=== PATIENT | female | born 1990 | race Hispanic/Latino ===

== ENCOUNTER 2018-12-08 19:50 | Observation (INO) | payer BC ==
[2018-12-08] MEDS ORDERED: Sodium Chloride 0.9% 1,000 ML IV SCH (20:45)
--- NOTE | 2018-12-08 20:48 | ED PDOC ---
HPI:STROKE - Time Time: 20:00 - Historian Historian: Patient - Chief Complaint Chief Complaint: Weakness, Slurred speech, Confusion, Arm weakness (RIGHT hand) - Onset Date: 12/08/18 Time: 14:30 - Timing Timing: Improved - Notes: Notes:: 28yo healthy women 27 weeks reporting sudden onset dysarthria, confusion, and RIGHT hand apraxia and tingling at 2:30pm, lasted for ~20 minutes and then resolved spontaneously but then had headache. Headache has also resolved. She denies chest pain or dyspnea. 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 Cobb NIHSS Stroke Scale - Date/Time Evaluation Performed Date Performed: 12/08/18 Time Performed: 20:00 When Was NIHSS Performed: Baseline - How Severe is the Stroke Level of Consciousness: 0=Alert LOC to Questions: 0=Both comments correct LOC to commands: 0=Obeys both correctly Best Gaze: 0=Normal Visual: 0=No visual loss Facial: 0=Normal Motor Arm - Left: 0=No drift Motor Arm - Right: 0=No drift Motor Leg - Left: 0=No drift Motor Leg - Right: 0=No drift Limb Ataxia: 0=Absent Sensory: 0=Normal Best Language: 0=No aphasia Dysarthia: 0=Normal articulation Extinction & Inattention (Neglect): 0=Normal, no object Score: 0 rTPA Inclusion/Exclusion - Refusal of Treatment Patient Refused Treatment: No - Inclusion Criteria for Altepase Patient is 18 years or Older: Yes The Clinical Diagnosis of Ischemic Stroke That is Causing a Potentially Disabling Neurological Deficit: Yes Time of Onset is Well Established to be Less Than 270 Minute Before Treatment Would Begin: No Risk/Benefit Discussed With Patient/Family Member Present: No Past Medical History Reviewed: Historical Data, Nursing Documentation, Vital Signs Vital Signs: Last Vital Signs Temp 98.3 F 12/08/18 19:54 Pulse 85 12/08/18 19:54 Resp 16 12/08/18 19:54 BP 138/70 12/08/18 19:54 Pulse Ox 100 12/08/18 19:54 - Medical History PMH: No Chronic Diseases - Surgical History Surgical History: No Surg Hx - Family History Family History: States: No Known Family Hx - Social History Current smoker - smoking cessation education provided: No - Home Medications Home Medications: Ambulatory Orders Medication Instructions Recorded Doxylamine Succinate [Unisom] 12.5 mg PO HS 12/09/18 Pnv No.95/Ferrous Fum/Folic AC 1 each PO DAILY 12/09/18 [ Vitamin Tablet] - Allergies Allergies/Adverse Reactions: Allergies Allergy/AdvReac Type Severity Reaction Status Date / Time amoxicillin Allergy RASH Verified 12/08/18 19:54 Review of Systems ROS Statement: Except As Marked, All Systems Reviewed And Found Negative Neurological: Positive for: Weakness, Change in Speech, Confusion, Headache Physical Exam - Reviewed Nursing Documentation Reviewed: Yes Vital Signs Reviewed: Yes - Physical Exam Appears: Positive for: Non-toxic, No Acute Distress Head Exam: Positive for: ATRAUMATIC, NORMOCEPHALIC Skin: Positive for: Warm, Dry Eye Exam: Positive for: EOMI, PERRL ENT: Negative for: Pharyngeal Erythema, Tonsillar Exudate Neck: Positive for: Painless ROM, Supple Cardiovascular/Chest: Positive for: Regular Rate, Rhythm. Negative for: Murmur Respiratory: Positive for: Normal Breath Sounds. Negative for: Wheezing Gastrointestinal/Abdominal: Positive for: Soft. Negative for: Tenderness Back: Positive for: Normal Inspection. Negative for: Decreased ROM Extremity: Positive for: Normal ROM. Negative for: Deformity Lymphatic: Negative for: Adenopathy Neurologic/Psych: Positive for: Alert. Negative for: Motor/Sensory Deficits - Laboratory Results Result Diagrams: 12/09/18 10:49 12/09/18 10:49 - ECG O2 Sat by Pulse Oximetry: 100 - Progress ED Course And Treament: 840p DW pt risks of radiation to fetus from single CT head and that risk of any harm is extremely low given pt is >15 weeks and the risk is negligible compared to benefit from evaluation for TIA or ICH. Understands this risk and amenable for CT. WOOD Tellez Neurohospitalist who agrees with plan for full TIA/stroke workup. Advises Aspirin. EXAM: CT Head without Intravenous Contrast. CLINICAL HISTORY: TIA RT HAND APRAXIA AND DYSARTHRIA TECHNIQUE: Axial computed tomography images of the head/brain without intravenous contrast. 662.86 mGy-cm COMPARISON: None provided. FINDINGS: BRAIN No acute intraparenchymal hemorrhage. No mass lesion. No CT evidence for acute territorial infarct. No midline shift or extra-axial collections. VENTRICLES: No hydrocephalus. ORBITS: The orbits are unremarkable. SINUSES AND MASTOIDS: The paranasal sinuses and mastoid air cells are clear. BONES: No fracture. SOFT TISSUES: Unremarkable. IMPRESSION: No acute intracranial abnormality. Electronically signed on Dec 08, 2018 9:13:13 PM EST by: Brooks Mason M.D., SEBASTIAN Certified By ABR & CBC[facility] Fellowship Trained MRI and CT Specialist Disposition - Clinical Impression Clinical Impression: Weakness of one side of body Counseled Patient/Family Regarding: Studies Performed, Diagnosis - Disposition Disposition Time: 22:00 Condition: FAIR - Pt Status Changed To: Hospital Disposition Of: Observation - POA Present On Arrival: None
[2018-12-08 20:57] LABS: INR 0.9; PROTHROMBIN TIME 10.4 Seconds (9.8-13.1)
[2018-12-08 20:59] LABS: PARTIAL THROMBOPLASTIN TIME 29.9 Seconds (25.6-37.1)
[2018-12-08 21:01] LABS: BASO # 0.1 K/uL (0.0-0.2); BASO % 0.5 % (0.0-2.0); EOS # 0.1 K/uL (0.0-0.7); EOS % 1.4 % (0.0-4.0); HEMOGLOBIN 11.5 g/dL (12.0-16.0); LYMPH # 1.6 K/uL (1.0-4.3); LYMPH % 17.6 % (20.0-40.0); MEAN CELL VOLUME 90.4 fl (81.0-99.0); MEAN CORPUSCULAR HGB CONC 34.3 g/dL (33.0-37.0); MEAN PLATELET VOLUME 9.3 fl (7.2-11.7); MONO # 0.6 K/uL (0.0-0.8); MONO % 6.3 % (0.0-10.0); NEUT # 6.9 K/uL (1.8-7.0); NEUT % 74.2 % (50.0-75.0); RBC 3.73 Mil/uL (3.80-5.20); RED CELL DISTRIBUTION WIDTH 13.1 % (11.5-14.5); WHITE BLOOD COUNT 9.3 K/uL (4.8-10.8)
[2018-12-08 21:07] LABS: ALB/GLOB RATIO 1.4 (1.0-2.1); ALBUMIN 4.1 g/dL (3.5-5.0); ALT/SGPT 24 U/L (9-52); AST/SGOT 23 U/L (14-36); BLOOD UREA NITROGEN 9 mg/dl (7-17); CALCIUM 9.1 mg/dL (8.4-10.2); GFR NON-AFRICAN AMERICAN > 60; HDL CHOLESTEROL 104 MG/DL (30-70)
[2018-12-08 21:19] LABS: LDL CHOLESTEROL 146 mg/dL (0-129)
--- NOTE | 2018-12-09 07:18 | CP.PCM.CON ---
History of Present Illness - History of Present Illness History of Present Illness: 28yo healthy women 27 weeks reporting sudden onset dysarthria, confusion, and Right hand apraxia and tingling at 2:30pm, lasted for ~20 minutes and then resolved spontaneously but then had headache. Headache has also resolved. She denies chest pain or dyspnea. EKG: normal Troponin: neg Echo: goood LV function EF: 65-70% Trace MR NO VSD or ASD no vegetations or thrombi Past Patient History - Past Medical History & Family History Past Medical History?: No - Past Social History Smoking Status: Never Smoked - CARDIAC Hx Cardiac Disorders: No - PULMONARY Hx Respiratory Disorders: No - NEUROLOGICAL Hx Neurological Disorder: No - HEENT Hx HEENT Problems: No - RENAL Hx Chronic Kidney Disease: No - ENDOCRINE/METABOLIC Hx Endocrine Disorders: No - HEMATOLOGICAL/ONCOLOGICAL Hx Blood Disorders: No - INTEGUMENTARY Hx Dermatological Problems: No - MUSCULOSKELETAL/RHEUMATOLOGICAL Hx Musculoskeletal Disorders: No Hx Falls: No - GENITOURINARY/GYNECOLOGICAL Hx Genitourinary Disorders: No - PSYCHIATRIC Hx Psychophysiologic Disorder: No Hx Substance Use: No - SURGICAL HISTORY Hx Surgeries: No - ANESTHESIA Hx Anesthesia: No Meds Allergies/Adverse Reactions: Allergies Allergy/AdvReac Type Severity Reaction Status Date / Time amoxicillin Allergy RASH Verified 12/08/18 19:54 - Medications Medications: Current Medications Sodium Chloride (Sodium Chloride 0.9%) 1,000 mls @ 100 mls/hr IV .Q10H [facility] [place] Last Admin: 12/08/18 20:54 Dose: 100 mls/hr Multivit/Folic Acid/Iron () 1 tab PO DAILY [facility] [place] Physical Exam - Respiratory Exam Respiratory Exam: NORMAL BREATHING PATTERN - Cardiovascular Exam Cardiovascular Exam: REGULAR RHYTHM Results - Vital Signs Recent Vital Signs: Last Vital Signs Temp 98.1 F 12/09/18 04:24 Pulse 68 12/09/18 04:24 Resp 15 12/09/18 04:48 BP 117/75 12/09/18 04:24 Pulse Ox 100 12/09/18 04:24 - Labs Result Diagrams: 12/09/18 10:49 12/09/18 10:49 Labs: Laboratory Results - last 24 hr 12/08/18 12/08/18 12/08/18 20:42 20:47 20:47 WBC RBC Hgb Hct MCV MCH MCHC RDW Plt Count MPV Neut % (Auto) Lymph % (Auto) [place] % (Auto) Eos % (Auto) Baso % (Auto) Neut # (Auto) Lymph # (Auto) [place] # (Auto) Eos # (Auto) Baso # (Auto) PT 10.4 INR 0.9 APTT 29.9 Sodium 135 Potassium 3.6 Chloride 103 Carbon Dioxide 23 Anion Gap 13 BUN 9 Creatinine 0.4 L Est GFR ( Amer) > 60 Est GFR (Non-Af Amer) > 60 POC Glucose (mg/dL) Random Glucose 85 Calcium 9.1 Total Bilirubin < 0.1 L AST 23 ALT 24 Alkaline Phosphatase 54 Troponin I < 0.0120 Total Protein 7.1 Albumin 4.1 Globulin 3.0 Albumin/Globulin Ratio 1.4 Triglycerides 145 Cholesterol 251 H LDL Cholesterol Direct 146 H HDL Cholesterol 104 H Blood Type O POSITIVE Antibody Screen Negative BBK History Checked No verified bt 12/08/18 12/08/18 20:48 21:11 WBC 9.3 RBC 3.73 L Hgb 11.5 L Hct 33.7 L MCV 90.4 MCH 31.0 MCHC 34.3 RDW 13.1 Plt Count 214 MPV 9.3 Neut % (Auto) 74.2 Lymph % (Auto) 17.6 L [place] % (Auto) 6.3 Eos % (Auto) 1.4 Baso % (Auto) 0.5 Neut # (Auto) 6.9 Lymph # (Auto) 1.6 [place] # (Auto) 0.6 Eos # (Auto) 0.1 Baso # (Auto) 0.1 PT INR APTT Sodium Potassium Chloride Carbon Dioxide Anion Gap BUN Creatinine Est GFR ( Amer) Est GFR (Non-Af Amer) POC Glucose (mg/dL) 87 Random Glucose Calcium Total Bilirubin AST ALT Alkaline Phosphatase Troponin I Total Protein Albumin Globulin Albumin/Globulin Ratio Triglycerides Cholesterol LDL Cholesterol Direct HDL Cholesterol Blood Type Antibody Screen BBK History Checked Assessment & Plan (1) Tingling of right upper extremity Assessment and Plan: Cardiac laurent the pt is stable no VSD/ASD Status: Acute
[2018-12-09] MEDS ORDERED: Prenatal Multivit/Folic Acid/Iron Tab PO SCH ×2 (09:00)
[2018-12-09] MEDS ORDERED: [UNRECOGNIZED DRUG - REMARK] PO SCH (09:00)
--- NOTE | 2018-12-09 10:22 | CT ---
Date of service: 12/08/2018 PROCEDURE: CT HEAD WITHOUT CONTRAST. HISTORY: TIA RIGHT hand apraxia and dysarthria COMPARISON: None available. TECHNIQUE: Axial computed tomography images were obtained through the head/brain without intravenous contrast. Radiation dose: Total exam DLP = 662.86 mGy-cm. This CT exam was performed using one or more of the following dose reduction techniques: Automated exposure control, adjustment of the mA and/or kV according to patient size, and/or use of iterative reconstruction technique. FINDINGS: HEMORRHAGE: No intracranial hemorrhage. BRAIN: No mass effect or edema. No atrophy or chronic microvascular ischemic changes. VENTRICLES: Unremarkable. No hydrocephalus. CALVARIUM: Unremarkable. PARANASAL SINUSES: Unremarkable as visualized. No significant inflammatory changes. MASTOID AIR CELLS: Unremarkable as visualized. No inflammatory changes. OTHER FINDINGS: None. IMPRESSION: Normal CT of the Head. Concordant results (preliminary interpretation) provided by [facility].
--- NOTE | 2018-12-09 10:24 | CARD ---
APPROVED REPORT Date of service: 12/08/2018 EKG Measurement Heart [id number] <Conclusion> Normal sinus rhythm Normal ECG
--- NOTE | 2018-12-09 11:00 | MRI ---
Date of service: 12/09/2018 PROCEDURE: MRI BRAIN WITHOUT CONTRAST HISTORY: TIA RIGHT hand apraxia and dysarthria COMPARISON: None available. TECHNIQUE: Multiplanar, multisequence MR images of the brain were obtained without intravenous contrast enhancement. FINDINGS: HEMORRHAGE: None DWI: No evidence of an acute or early subacute infarction. BRAIN PARENCHYMA: Intrinsic signal throughout the guillen and white matter structures above below the tentorium appears within normal limits including the brainstem. There is no mass effect, parenchymal edema or loss of the corticomedullary differentiation. Midline brain anatomy appears within normal limits including the corpus callosum, brainstem and craniocervical junction. There is no suspicious extra-axial fluid collection identified. VENTRICLES: Unremarkable. No hydrocephalus. CRANIUM: Unremarkable. ORBITS: Grossly unremarkable. PARANASAL SINUSES/MASTOIDS: Clear VASCULAR SYSTEM: Skull base flow voids intact. OTHER FINDINGS: None. IMPRESSION: Unremarkable non contrast enhanced MRI of the brain.
[2018-12-09 11:01] LABS: HEMOGLOBIN 10.2 g/dL (12.0-16.0); MEAN CELL VOLUME 90.7 fl (81.0-99.0); MEAN CORPUSCULAR HGB CONC 33.1 g/dL (33.0-37.0); RBC 3.41 Mil/uL (3.80-5.20); WHITE BLOOD COUNT 7.2 K/uL (4.8-10.8)
[2018-12-09 11:36] LABS: T4 9.67 ug/dl (5.5-11.0)
[2018-12-09 11:51] LABS: ALB/GLOB RATIO 1.2 (1.0-2.1); ALBUMIN 3.3 g/dL (3.5-5.0); ALT/SGPT 23 U/L (9-52); AST/SGOT 16 U/L (14-36); BLOOD UREA NITROGEN 5 mg/dl (7-17); CALCIUM 8.1 mg/dL (8.4-10.2); GFR NON-AFRICAN AMERICAN > 60
[2018-12-09 11:57] VITALS: TEMP 98.3
--- NOTE | 2018-12-09 12:16 | US ---
Date of service: 12/08/2018 PROCEDURE: Duplex ultrasound of the carotid and vertebral arteries. HISTORY: TIA COMPARISON: None available. TECHNIQUE: Grayscale and duplex Doppler evaluation of the cervical carotid and vertebral arteries were performed. The common carotid, carotid bifurcations and cervical ICA and proximal ECA were evaluated. The vertebral arteries were evaluated for gross patency and direction. FINDINGS: RIGHT CAROTID ARTERIES: Common Carotid Artery: Maximal flow velocity of 94.1 cm/s. Carotid Bifurcation: Normal. Internal Carotid Artery:Heterogeneous plaque formation. Maximal flow velocity of 67.8 cm/s. External Carotid Artery (proximal branches): Maximal flow velocity of 115.3 cm/s. ICA/CCA Ratio: 0.7 LEFT CAROTID ARTERIES: Common Carotid Artery: Maximal flow velocity of 71.6 cm/s. Carotid Bifurcation: Normal. Internal Carotid Artery:Heterogeneous plaque formation. Maximal flow velocity of 92.1 cm/s. External Carotid Artery (proximal branches): Maximal flow velocity of 89.4 cm/s. ICA/CCA Ratio: 1 3 VERTEBRAL ARTERIES: Right Vertebral Artery: Patent. Antegrade flow. Left Vertebral Artery: Patent. Antegrade flow. OTHER FINDINGS: Atherosclerotic calcification present. IMPRESSION: Right ICA degree of stenosis: Less than 50% Left ICA degree of stenosis: Less than 50% Reference Internal Carotid Artery (ICA) Peak Systolic Velocity (PSV) for above: 1. Less than 50% stenosis less than 125 cm/s peak systolic velocity 2. 50-69% stenosis 125-230cm/s peak systolic velocity 3. Greater than 70% but less than near occlusion greater than 230 cm/s peak systolic velocity Concordant findings (preliminary report) provided by [facility].
--- NOTE | 2018-12-09 13:36 | CP.PCM.PCO ---
Assessment & Plan - Assessment and Plan (Free Text) Assessment: Statins contraindicated secondary to
[2018-12-09 15:19] VITALS: BP 104/64; PULSE 87; RESP 20
--- NOTE | 2018-12-09 19:00 | CP.PCM.CON ---
History of Present Illness - History of Present Illness History of Present Illness: 28 yr old woman, about 7 months who had transient spell of dysarthria and weakness that resolved on presentation to ER. MRI Brain was normal with no sign of stroke, and patient was not a TPA candidate due to resolution of sy mptoms. She has never had prior spells, no stroke no seizures. has so far been normal. ON interview today, patient has no complaints. ROS: none PMH/PSH FH/SH All: nkda ON exam: Normal Neurological exam +2 dtr ul and ll bl. Toes downgoing. No clonus Past Patient History - Past Medical History & Family History Past Medical History?: No - Past Social History Smoking Status: Never Smoked - CARDIAC Hx Cardiac Disorders: No - PULMONARY Hx Respiratory Disorders: No - NEUROLOGICAL Hx Neurological Disorder: No - HEENT Hx HEENT Problems: No - RENAL Hx Chronic Kidney Disease: No - ENDOCRINE/METABOLIC Hx Endocrine Disorders: No - HEMATOLOGICAL/ONCOLOGICAL Hx Blood Disorders: No - INTEGUMENTARY Hx Dermatological Problems: No - MUSCULOSKELETAL/RHEUMATOLOGICAL Hx Musculoskeletal Disorders: No Hx Falls: No - GENITOURINARY/GYNECOLOGICAL Hx Genitourinary Disorders: No - PSYCHIATRIC Hx Psychophysiologic Disorder: No Hx Substance Use: No - SURGICAL HISTORY Hx Surgeries: No - ANESTHESIA Hx Anesthesia: No Meds Allergies/Adverse Reactions: Allergies Allergy/AdvReac Type Severity Reaction Status Date / Time amoxicillin Allergy RASH Verified 12/08/18 19:54 Results - Vital Signs Recent Vital Signs: Last Vital Signs Temp 98.3 F 12/09/18 15:19 Pulse 87 12/09/18 15:19 Resp 20 12/09/18 15:19 BP 104/64 12/09/18 15:19 Pulse Ox 98 12/09/18 15:19 - Labs Result Diagrams: 12/09/18 10:49 12/09/18 10:49 Labs: Laboratory Results - last 24 hr 12/08/18 12/08/18 12/08/18 20:42 20:47 20:47 WBC RBC Hgb Hct MCV MCH MCHC RDW Plt Count MPV Neut % (Auto) Lymph % (Auto) [place] % (Auto) Eos % (Auto) Baso % (Auto) Neut # (Auto) Lymph # (Auto) [place] # (Auto) Eos # (Auto) Baso # (Auto) PT INR APTT Sodium 135 Potassium 3.6 Chloride 103 Carbon Dioxide 23 Anion Gap 13 BUN 9 Creatinine 0.4 L Est GFR ( Amer) > 60 Est GFR (Non-Af Amer) > 60 POC Glucose (mg/dL) Random Glucose 85 Hemoglobin A1c 4.9 Calcium 9.1 Total Bilirubin < 0.1 L AST 23 ALT 24 Alkaline Phosphatase 54 Troponin I < 0.0120 Total Protein 7.1 Albumin 4.1 Globulin 3.0 Albumin/Globulin Ratio 1.4 Triglycerides 145 Cholesterol 251 H LDL Cholesterol Direct 146 H HDL Cholesterol 104 H Thyroxine (T4) TSH 3rd Generation Blood Type O POSITIVE Blood Type Confirm Antibody Screen Negative BBK History Checked No verified bt 12/08/18 12/08/18 12/08/18 20:47 20:48 21:11 WBC 9.3 RBC 3.73 L Hgb 11.5 L Hct 33.7 L MCV 90.4 MCH 31.0 MCHC 34.3 RDW 13.1 Plt Count 214 MPV 9.3 Neut % (Auto) 74.2 Lymph % (Auto) 17.6 L [place] % (Auto) 6.3 Eos % (Auto) 1.4 Baso % (Auto) 0.5 Neut # (Auto) 6.9 Lymph # (Auto) 1.6 [place] # (Auto) 0.6 Eos # (Auto) 0.1 Baso # (Auto) 0.1 PT 10.4 INR 0.9 APTT 29.9 Sodium Potassium Chloride Carbon Dioxide Anion Gap BUN Creatinine Est GFR ( Amer) Est GFR (Non-Af Amer) POC Glucose (mg/dL) 87 Random Glucose Hemoglobin A1c Calcium Total Bilirubin AST ALT Alkaline Phosphatase Troponin I Total Protein Albumin Globulin Albumin/Globulin Ratio Triglycerides Cholesterol LDL Cholesterol Direct HDL Cholesterol Thyroxine (T4) TSH 3rd Generation Blood Type Blood Type Confirm Antibody Screen BBK History Checked 12/09/18 12/09/18 12/09/18 10:49 10:49 10:49 WBC 7.2 RBC 3.41 L Hgb 10.2 L Hct 30.9 L MCV 90.7 MCH 30.0 MCHC 33.1 RDW 13.0 Plt Count 183 MPV Neut % (Auto) Lymph % (Auto) [place] % (Auto) Eos % (Auto) Baso % (Auto) Neut # (Auto) Lymph # (Auto) [place] # (Auto) Eos # (Auto) Baso # (Auto) PT INR APTT Sodium 134 Potassium 4.1 Chloride 105 Carbon Dioxide 24 Anion Gap 9 L BUN 5 L Creatinine 0.4 L Est GFR ( Amer) > 60 Est GFR (Non-Af Amer) > 60 POC Glucose (mg/dL) Random Glucose 106 H Hemoglobin A1c Calcium 8.1 L Total Bilirubin 0.2 AST 16 ALT 23 Alkaline Phosphatase 44 Troponin I Total Protein 6.0 L Albumin 3.3 L Globulin 2.7 Albumin/Globulin Ratio 1.2 Triglycerides Cholesterol LDL Cholesterol Direct HDL Cholesterol Thyroxine (T4) 9.67 TSH 3rd Generation 4.12 Blood Type Blood Type Confirm O POSITIVE Antibody Screen BBK History Checked Assessment & Plan - Assessment and Plan (Free Text) Assessment: MRI Brain: Normal A/P: 28 yr old woman who had spell that is not stroke, but rather may be anxiety. We will discharge her home with close followup. Thank you Dr. Tellez
--- NOTE | 2018-12-09 20:11 | HP ---
HISTORY OF PRESENT ILLNESS: Ms. Curran is a 28-year-old female who was admitted via the emergency room following an episode of sudden onset of dysarthria, confusion and right hand apraxia, tingling on the evening of admission. She indicates that the episode lasted for about 20 minutes before she came to the emergency room and she felt like it was just migraine headaches but showed up to the emergency room for evaluation anyway. She is 27 weeks , 2, para 1. PAST MEDICAL HISTORY: Has unremarkable medical history. MEDICATIONS: She is presently is on vitamins and sleeping pills. FAMILY HISTORY: Unremarkable. SOCIAL HISTORY: Socially, she does not smoke or drink and lives at home with her and daughter. REVIEW OF SYSTEMS: Essentially unremarkable. PHYSICAL EXAMINATION: GENERAL: The patient is alert and oriented, appears to be in no apparent distress at present. VITAL SIGNS: Blood pressure 117/75, pulse of 68, respiratory rate is 18 per minute, O2 sat 100% on room air. She is afebrile. SKIN: Shows fair turgor. HEENT: Pupils equal and react to light and accommodation. JVP flat. Mouth shows fair hygiene. LUNGS: Clear. HEART: Regular. No murmurs or gallops. ABDOMEN: Soft, nontender, no organomegaly. She is . EXTREMITIES: Show no edema or cyanosis. CENTRAL NERVOUS SYSTEM: Grossly intact. LABORATORY DATA: WBC 9.3, hemoglobin 11.5, platelet count 214,000. Sodium 135, potassium 3.6, BUN 9, creatinine 0.4, serum glucose of 85. CT scan of head, official report pending. EKG, carotid ultrasound, all reports pending. IMPRESSION: One has to rule out transient ischemic attack. , hyperlipidemia. PLAN: The plan is aspirin already given. Cardiac evaluation. Neurology evaluation, would obtain MRI of the brain and echocardiogram to rule out other cardiac or [employer]ES pathology with neurology evaluation prior to planning discharge. Almas Ann MD
--- NOTE | 2018-12-10 00:04 | CARD ---
APPROVED REPORT Date of service: 12/09/2018 EXAM: Two-dimensional and M-mode echocardiogram with Doppler, color Doppler with bubble study. Other Information Quality : GoodRhythm : NSR INDICATION CVA/TIA Echo Enhancing Agent Indication: Rule Out Septal Defect Agent/Amount Used: Agitated Saline 2D DIMENSIONS IVSd0.71 (0.7-1.1cm)LVDd5.07 (3.9-5.9cm) LVOT Diameter1.93 (1.8-2.4cm)PWd0.46 (0.7-1.1cm) IVSs1.19 (0.8-1.2cm)LVDs3.25 (2.5-4.0cm) FS (%) 36.0 %PWs1.22 (0.8-1.2cm) M-Mode DIMENSIONS Left Atrium (MM)3.67 (2.5-4.0cm)IVSd1.10 (0.7-1.1cm) Aortic Root2.95 (2.2-3.7cm)LVDd5.10 (4.0-5.6cm) Aortic Cusp Exc.2.18 (1.5-2.0cm)PWd1.05 (0.7-1.1cm) IVSs1.79 cmFS (%) 40 % LVDs3.06 (2.0-3.8cm)PWs1.38 cm Aortic Valve AoV Peak Nxixmtwk585.6cm/sAoV VTI23.9cmAO Peak GR.5mmHg LVOT Peak Dslexkpo174.8cm/sLVOT VTI21.07cmAO Mean GR.3mmHg [place]ILLE (VMAX)1.21aj6ICL (VTI)1.64cm2 Mitral Valve MV E Ocnwpxnm14.2cm/sMV DECEL UYQD020xyUR A Aedynlmh53.7cm/s MV WCW57alG/A ratio1.9MVA (PHT)3.74cm2 TDI Lateral E' Peak V18.01cm/sMedial E' Peak V13.77cm/sE/Lateral E'5.1 E/Medial E'6.6 Pulmonary Valve PV Peak Timqitql473.7cm/s LEFT VENTRICLE The left ventricle is normal size. There is normal left ventricular wall thickness. The left ventricular systolic function is normal. The estimated ejection fraction is 65-70% No regional wall motion abnormalities noted.. The left ventricular diastolic function is normal. No left ventricle thrombus noted on this study. There is no ventricular septal defect visualized. There is no left ventricular aneurysm. There is no mass noted in the left ventricle. RIGHT VENTRICLE The right ventricle is normal size. There is normal right ventricular wall thickness. The right ventricular systolic function is normal. ATRIA The left atrium size is normal. The right atrium size is normal. The interatrial septum is intact with no evidence for an atrial septal defect.Negative bubble studyfor ASD AORTIC VALVE The aortic valve is normal in structure. No aortic regurgitation is present. There is no aortic valvular stenosis. There is no aortic valvular vegetation. MITRAL VALVE The mitral valve is normal in structure. There is no evidence of mitral valve prolapse. There is no mitral valve stenosis. Mitral regurgitation is mild. TRICUSPID VALVE The tricuspid valve is normal in structure. There is no tricuspid valve regurgitation noted. There is no tricuspid valve prolapse or vegetation. There is no tricuspid valve stenosis. PULMONIC VALVE The pulmonary valve is normal in structure. There is trace pulmonic valvular regurgitation. There is no pulmonic valvular stenosis. GREAT VESSELS The aortic root is normal in size. The ascending aorta is normal in size. The pulmonary artery is normal. The IVC is normal in size and collapses >50% with inspiration. PERICARDIAL EFFUSION There is no pericardial effusion. There is no pleural effusion. <Conclusion> Normal LV size and systolic function The estimated ejection fraction is 65-70% Mild MR Trace MA No evidence to suggest an ASD
--- NOTE | 2018-12-10 16:44 | CP.PCM.DIS ---
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] Stat Comment: Consulting Provider: Gerardo Bland Consulting Physician: Gerardo Bland Reason for Consult: 27 weeks 12/09/18 06:13 Cardiology Consult Routine Comment: Consulting Provider: Erasto Hodge Consulting Physician: Erasto Hodge Reason for Consult: TIA Time Spent in preparation of Discharge (in minutes): 30 Diagnosis - Discharge Diagnosis (1) Anxiety Status: Acute (2) Status: Acute (3) Tingling of right upper extremity Status: Acute Hospital Course - Lab Results Lab Results: Most Recent Lab Values WBC 7.2 K/uL (4.8-10.8) 12/09/18 10:49 RBC 3.41 Mil/uL (3.80-5.20) L 12/09/18 10:49 Hgb 10.2 g/dL (12.0-16.0) L 12/09/18 10:49 Hct 30.9 % (34.0-47.0) L 12/09/18 10:49 MCV 90.7 fl (81.0-99.0) 12/09/18 10:49 MCH 30.0 pg (27.0-31.0) 12/09/18 10:49 MCHC 33.1 g/dL (33.0-37.0) 12/09/18 10:49 RDW 13.0 % (11.5-14.5) 12/09/18 10:49 Plt Count 183 K/uL (130-400) 12/09/18 10:49 MPV 9.3 fl (7.2-11.7) 12/08/18 20:48 Neut % (Auto) 74.2 % (50.0-75.0) 12/08/18 20:48 Lymph % (Auto) 17.6 % (20.0-40.0) L 12/08/18 20:48 Upson % (Auto) 6.3 % (0.0-10.0) 12/08/18 20:48 Eos % (Auto) 1.4 % (0.0-4.0) 12/08/18 20:48 Baso % (Auto) 0.5 % (0.0-2.0) 12/08/18 20:48 Neut # (Auto) 6.9 K/uL (1.8-7.0) 12/08/18 20:48 Lymph # (Auto) 1.6 K/uL (1.0-4.3) 12/08/18 20:48 Upson # (Auto) 0.6 K/uL (0.0-0.8) 12/08/18 20:48 Eos # (Auto) 0.1 K/uL (0.0-0.7) 12/08/18 20:48 Baso # (Auto) 0.1 K/uL (0.0-0.2) 12/08/18 20:48 PT 10.4 Seconds (9.8-13.1) 12/08/18 20:47 INR 0.9 12/08/18 20:47 APTT 29.9 Seconds (25.6-37.1) 12/08/18 20:47 Sodium 134 mmol/l (132-148) 12/09/18 10:49 Potassium 4.1 MMOL/L (3.6-5.0) 12/09/18 10:49 Chloride 105 mmol/L (98-107) 12/09/18 10:49 Carbon Dioxide 24 mmol/L (22-30) 12/09/18 10:49 Anion Gap 9 (10-20) L 12/09/18 10:49 BUN 5 mg/dl (7-17) L 12/09/18 10:49 Creatinine 0.4 mg/dl (0.7-1.2) L 12/09/18 10:49 Est GFR ( Amer) > 60 12/09/18 10:49 Est GFR (Non-Af Amer) > 60 12/09/18 10:49 POC Glucose (mg/dL) 87 mg/dL (65-110) 12/08/18 21:11 Random Glucose 106 mg/dL (65-105) H 12/09/18 10:49 Hemoglobin A1c 4.9 % (4.2-6.5) 12/08/18 20:47 Calcium 8.1 mg/dL (8.4-10.2) L 12/09/18 10:49 Total Bilirubin 0.2 mg/dl (0.2-1.3) 12/09/18 10:49 AST 16 U/L (14-36) 12/09/18 10:49 ALT 23 U/L (9-52) 12/09/18 10:49 Alkaline Phosphatase 44 U/L (38-126) 12/09/18 10:49 Troponin I < 0.0120 ng/mL (0.00-0.120) 12/08/18 20:47 Total Protein 6.0 G/DL (6.3-8.2) L 12/09/18 10:49 Albumin 3.3 g/dL (3.5-5.0) L 12/09/18 10:49 Globulin 2.7 gm/dL (2.2-3.9) 12/09/18 10:49 Albumin/Globulin Ratio 1.2 (1.0-2.1) 12/09/18 10:49 Triglycerides 145 mg/DL (0-149) 12/08/18 20:47 Cholesterol 251 mg/dL (0-199) H 12/08/18 20:47 LDL Cholesterol Direct 146 mg/dL (0-129) H 12/08/18 20:47 HDL Cholesterol 104 MG/DL (30-70) H 12/08/18 20:47 Thyroxine (T4) 9.67 ug/dl (5.5-11.0) 12/09/18 10:49 TSH 3rd Generation 4.12 mIU/ML (0.46-4.68) 12/09/18 10:49 Blood Type O POSITIVE 12/08/18 20:42 Blood Type Confirm O POSITIVE 12/09/18 10:49 Antibody Screen Negative 12/08/18 20:42 BBK History Checked No verified bt 12/08/18 20:42 - Hospital Course Hospital Course: NO RECURRENCE OF NUMBNESS OF ARMS ALL NEUROLOGY WORKUP WERE NON-REVEALING CLEARED FOR DISCHARGE BY NEUROLOGIST--EPISODE THOUGHT TO BE ANXIETY RELATED Discharge Exam - Head Exam Head Exam: ATRAUMATIC, NORMOCEPHALIC - Eye Exam Eye Exam: EOMI, Normal appearance, PERRL Pupil Exam: NORMAL ACCOMODATION, PERRL - GI/Abdominal Exam GI & Abdominal Exam: Normal Bowel Sounds - Rectal Exam Rectal Exam: NORMAL INSPECTION - Exam External exam: NORMAL EXTERNAL EXAM - Neurological Exam Neurological exam: Alert, CN II-XII Intact, Normal Gait, Oriented x3, Reflexes Normal - Psychiatric Exam Psychiatric exam: Normal Affect, Normal Mood - Skin Skin Exam: Dry, Intact, Normal Color, Warm Discharge Plan - Follow Up Plan Condition: GOOD Disposition: HOME/ ROUTINE Instructions: Transient Ischemic Attack (DC) Additional Instructions: please follow up with primary care physician in 1 week may take aspirin 81mg 1 tablet daily. Referrals: [facility] [Outside] Gerardo Bland MD [Staff Provider] - Almas Ann MD [Staff Provider] -
[2018-12-10 18:13] VITALS: O2SAT 100
== END 2018-12-09 17:15 | disposition home or self-care (01) ==
LOC: H.ER 19:50 → H.ERHOLD 21:40 → H.TEL 12-09 04:17
PROVIDERS: ADMIT Internal Medicine Pulmonary Disease; ATTEND Internal Medicine Pulmonary Disease
DX: O99.342 Other mental disorders complicating pregnancy, second trimester (principal); F41.9 Anxiety disorder, unspecified; R47.1 Dysarthria and anarthria; R53.1 Weakness; E78.5 Hyperlipidemia, unspecified; Z3A.27 27 weeks gestation of pregnancy; R48.2 Apraxia
CPT/HCPCS: 36415; 70450; 70551; 80053; 80061; 82948; 83036; 84436; 84443; 84484; 85025; 85027; 85610; 85730; 86850; 86900; 93005; 93306; 93880; 97161; 99285; G0378; G8978; G8979; G8980; J7030

== ENCOUNTER 2019-03-21 18:44 | Inpatient (IN) | payer BC ==
[2019-03-21 19:11] VITALS: BMI 26.8
[2019-03-21] MEDS ORDERED: Lactated Ringer's 1,000 ML IV ONE (19:11)
--- NOTE | 2019-03-21 19:34 | OBADHP ---
Datetime: 03/21/2019 19:27 Admit Comment, IP Provider: Patient is a @ 40.1 wks, presents with painful contractions. Patien t denies VB, leaking, +FM. no antepartum issues, no medical problems, allergy to Amoxicillin VE = /-1 FHR = 135 mod robe, +accels, no decels TOCO = ctxning q 1-3 mins A/P 1. patient in labor, admit to labor and delivery, IVF, CBC, type and screen 2. Patient would like epidural for pain 3. CEFM and TOCO 4. Re-evaluate as needed - Dr. Bland notified about patient status Pelvic Type - PN: Adequate Extremities - PN: Normal Abdomen - PN: Normal Back - PN: Normal Breast - PN: Normal Lungs - PN: Normal Heart - PN: Normal Thyroid - PN: Normal Neurologic - PN: Normal HEENT - PN: Normal General - PN: Normal FHR - Baseline A Provider: 135 Contraction Comments Provider: q 1-3 mins Vital Signs Provider: Reviewed; Within Normal Limits IP Chief Complaint: Uterine contractions NICHD Variability Prov Fetus A: Moderate 6-25bpm NICHD Accel Fetus A IP Provider: [id number] FHR Category Provider Fetus A: Category I NICHD Decel Fetus A IP Provider: None Dilatation, Provider: 6 Effacement, Provider: 60 Station, Provider: -1 Genitourinary Exam: Normal DTRs - PN: Normal EGA AdmitDate IP: 40.1 IP Adm Impression: Term, intrauterine IP Admit Plan: Admit to unit; Initiate labor protocol
[2019-03-21 19:36] LABS: BASO % 0.4 % (0.0-2.0); EOS # 0.1 K/uL (0.0-0.7); EOS % 1.1 % (0.0-4.0); HEMOGLOBIN 13.5 g/dL (12.0-16.0); LYMPH # 1.4 K/uL (1.0-4.3); LYMPH % 14.5 % (20.0-40.0); MEAN CELL VOLUME 91.2 fl (81.0-99.0); MEAN CORPUSCULAR HEMOGLOBIN 30.1 pg (27.0-31.0); MEAN PLATELET VOLUME 10.2 fl (7.2-11.7); MONO # 0.6 K/uL (0.0-0.8); MONO % 6.3 % (0.0-10.0); NEUT # 7.7 K/uL (1.8-7.0); NEUT % 77.7 % (50.0-75.0); NRBC % 0.1 % (0.0-0.0); RBC 4.49 Mil/uL (3.80-5.20); RED CELL DISTRIBUTION WIDTH 13.4 % (11.5-14.5)
[2019-03-21] MEDS ORDERED: Fentanyl/Bupivacaine HCl 250 ML EPI ONE (19:47)
[2019-03-21] MEDS ORDERED: Oxytocin 30 UNIT in NS 500 ml 30 UNITS/500 ML BAG IV ONE ×2 (20:42→21:33)
[2019-03-21] MEDS ORDERED: OXYTOCIN/0.9 % NS 20 UNIT/1,000 ML BAG IV SCH (20:45)
[2019-03-21] MEDS ORDERED: Lactated Ringer's 1,000 ML IV SCH (20:45)
--- NOTE | 2019-03-21 21:32 | OBDS ---
DELIVERY PERSONNEL Delivery Doctor: Jon Bland MD Central Supply Technician: Belkis Rodriguez RN Anesthesiologist: Zach Malloy MD MATERNAL INFORMATION Delivery Anesthesia: Local; Epidural Medications in Delivery: Pitocin Placenta Cultured: No Maternal Complications: None RN Comments: compound Right hand Provider Comments: delivery of live baby girl 9/9 clear fluid cord with 3 vessels and repair o f first degree tear with 2-0 chromic LABOR SUMMARY EDC: 03/20/2019 00:00 No. Babies in Womb: 1 Attempted: No Labor Anesthesia: Epidural LABOR INFORMATION Reason for Induction: Not Applicable Onset of Labor: 03/21/2019 17:00 Complete Dilatation: 03/21/2019 20:41 Oxytocin: N/A Group B Beta Strep: Negative Antibiotics # of Doses: 0 Antibiotics Time of Last Dose: n/a Steroids Given: None Reason Steroids Not Administered: Not Applicable MEMBRANES Membranes Rupture Method: Spontaneous Rupture of Membranes: 03/21/2019 19:59 Length of Rupture (hrs): 1.00 Amniotic Fluid Color: Clear Amniotic Fluid Amount: Moderate Amniotic Fluid Odor: None STAGES OF LABOR Stage 1 hrs: 3 Stage 1 min: 41 Stage 2 hrs: 0 Stage 2 min: 18 Stage 3 hrs: 0 Stage 3 min: 6 Total Time in Labor hrs: 4 Total Time in Labor min: 5 VAGINAL DELIVERY Episiotomy: None Laceration Extension: First Degree Laceration Type: Perineal Laceration Repair: Yes Laceration Repair Note: repairof first degree tear with 2-0 chromic Initial Vag Sponge Count: 15 Final Vag Sponge Count: 2 Initial Vag Sharps Count: 15 Final Vag Sharps Count: 2 Sponge Count Correct: Yes Sharps Count Correct: Yes Count Comment: count correct BABY A INFORMATION Delivery Date/Time: 03/21/2019 20:59 Method of Delivery: Vaginal Born in Route : No : N/A Forceps: N/A Vacuum Extraction: N/A Shoulder Dystocia : No SHOULDER DYSTOCIA BABY A Infant Delivery Date/Time: 03/21/2019 20:59 PRESENTATION/POSITION BABY A Presentation: Cephalic PLACENTA INFORMATION BABY A Placenta Delivery Time : 03/21/2019 21:05 Placenta Method of Delivery: Spontaneous Placenta Status: Delivered SCORES BABY A Heart Rate 1 min: >100 bpm Resp Effort 1 min: Good Cry Reflex Irritability 1 min: Cough or Sneeze or Pulls Away Muscle Tone 1 min: Active Motion Color 1 min: Body Carson, Extremities Blue Resuscitation Effort 1 min: Tactile Stimulation SCORE 1 MIN: 9 Heart Rate 5 min: >100 bpm Resp Effort 5 min: Good Cry Reflex Irritability 5 min: Cough or Sneeze or Pulls Away Muscle Tone 5 min: Active Motion Color 5 min: Body Carson, Extremities Blue Resuscitation Effort 5 min: N/A SCORE 5 MIN: 9 INFORMATION BABY A Gestational Age at Delivery: 40.1 Gestational Status: Term Infant Outcome : Liveborn Infant Condition : Stable Sex: Female IDENTIFICATION/MEDS BABY A ID Band Location: Left Leg; Left Arm CORD INFORMATION BABY A No. Cord Vessels: 3 Nuchal Cord : Around Neck x1, Loose Cord Blood Taken: Yes Infant Suction: Mouth; Nose ASSESSMENT BABY A Complications: None Physical Findings at Delivery: Within Normal Limits Respirations: Appears Normal Electroformer/ALS Called : No Care By: Nito Transferred To: Remains with Mother
[2019-03-21] MEDS ORDERED: Oxycodone/Acetaminophen 5/325 mg Tab PO PRN ×2 (21:33→23:02)
[2019-03-21] MEDS ORDERED: Benzocaine/Menthol SPRAY TOP PRN ×2 (21:33→23:02)
[2019-03-22 07:08] LABS: HEMOGLOBIN 12.4 g/dL (12.0-16.0); MEAN CELL VOLUME 92.1 fl (81.0-99.0); MEAN CORPUSCULAR HEMOGLOBIN 29.6 pg (27.0-31.0); MEAN CORPUSCULAR HGB CONC 32.1 g/dL (33.0-37.0); MEAN PLATELET VOLUME 10.3 fl (7.2-11.7); PLATELET COUNT 173 K/uL (130-400); RED CELL DISTRIBUTION WIDTH 13.6 % (11.5-14.5); WHITE BLOOD COUNT 13.8 K/uL (4.8-10.8)
[2019-03-22 07:50] LABS: LYMPH % 10.8 % (20.0-40.0)
[2019-03-22 07:51] LABS: BASO % 0.3 % (0.0-2.0); EOS % 0.6 % (0.0-4.0); MONO % 3.9 % (0.0-10.0)
[2019-03-22 07:52] LABS: NEUT # 11.2 K/uL (1.8-7.0); NRBC % 0.1 % (0.0-0.0)
[2019-03-22 07:53] LABS: EOS # 0.1 K/uL (0.0-0.7); LYMPH # 1.4 K/uL (1.0-4.3); MONO # 0.5 K/uL (0.0-0.8)
[2019-03-22 07:54] LABS: NEUT % 84.4 % (50.0-75.0)
[2019-03-22 08:25] LABS: LYMPHOCYTE 8 % (20-50); MONOCYTE 5 % (0-10); NEUTROPHIL 87 % (42-75); PLATELET ESTIMATE NORMAL (NORMAL); TOTAL CELLS COUNTED 100
[2019-03-22 08:26] LABS: ANISOCYTOSIS SLIGHT; LARGE PLATELETS PRESENT; TEARDROP CELLS SLIGHT
[2019-03-22] MEDS: Multivitamin With Minerals Tab PO SCH (08:38)
[2019-03-22] MEDS ORDERED: Multivitamin With Minerals Tab PO SCH (09:00)
--- NOTE | 2019-03-22 17:38 | OBPPN ---
Datetime: 03/22/2019 17:32 PP Pain Prov: Within normal limits PP Nausea Prov: Denies PP Flatus Prov: Yes PP BM Prov: No PP Breasts Prov: Normal PP Heart Prov: Normal PP Lungs Prov: Normal PP Abdomen/Uterus Prov: Normal PP Lochia Prov: Normal PP Vulva/Perineum Prov: Normal PP CVA Tenderness Prov: Normal PP Extremities Prov: Normal PP Progress Prov: Normal PP Impression Prov: Normal progression PP Plan Prov: Continue present management PP Progress Note Prov: stable pppd1 continue present care no complaints IP PP Procedures: None Vital Signs Provider PP: Reviewed; Within Normal Limits
[2019-03-23] MEDS: Multivitamin With Minerals Tab PO SCH (08:15)
--- NOTE | 2019-03-23 08:22 | OBPPN ---
Datetime: 03/23/2019 08:18 PP Pain Prov: Within normal limits PP Nausea Prov: Denies PP Flatus Prov: Yes PP BM Prov: Yes PP Breasts Prov: Normal PP Heart Prov: Normal PP Lungs Prov: Normal PP Abdomen/Uterus Prov: Normal PP Lochia Prov: Normal PP Vulva/Perineum Prov: Normal PP CVA Tenderness Prov: Normal PP Extremities Prov: Normal PP Progress Prov: Normal PP Impression Prov: Normal progression PP Plan Prov: Continue present management PP Progress Note Prov: stable ppd2 continue present care IP PP Procedures: None Vital Signs Provider PP: Reviewed; Within Normal Limits
--- NOTE | 2019-03-23 08:24 | OBDCSUM ---
Datetime: 03/23/2019 08:20 Discharged to, Provider: Home Follow up at, Provider: Disch Instr Activity: Normal activity; Bedrest; May be up to bathroom; May be up for meals; May Show er Disch Instr Diet: Regular Discharge Instructions, Provider: Routine instructions given Discharge Diagnosis, Provider: Term Delivered Follow up in weeks, Provider: 5-6 weeks in office Disch Referrals: None Disch Activity Restrictions: No exercising; No lifting; No driving; Minimize walking; Minimize stair -climbing; No sexual activity; Nothing in vagina - [place], tampons, douche Discharge Comment, Provider: dc home today rto 5-6 weeks call office if any problrms Contraception after Delivery: Undecided
[2019-03-23 18:22] VITALS: BP 119/76; PULSE 66; RESP 20; TEMP 97.4; O2SAT 93
== END 2019-03-23 11:35 | disposition home or self-care (01) | DRG 807 ==
LOC: H.EROB2 18:44 → H.L&D 19:11 → H.OB/GYN 22:56
PROVIDERS: ADMIT Specialist; ATTEND Specialist
PROC: 10E0XZZ Delivery of Products of Conception, External Approach (ICD-10-PCS; principal; 2019-03-21)
PROC: 0HQ9XZZ Repair Perineum Skin, External Approach (ICD-10-PCS; 2019-03-21)
PROC: 4A1HXCZ Monitoring of Products of Conception, Cardiac Rate, External Approach (ICD-10-PCS; 2019-03-21)
DX: O69.81X0 Labor and delivery complicated by cord around neck, without compression, not applicable or unspecified (principal); Z37.0 Single live birth; O70.0 First degree perineal laceration during delivery; Z3A.40 40 weeks gestation of pregnancy